=== PATIENT | male | born 1940 | race Caucasian/White ===

== ENCOUNTER 2017-04-09 07:02 | Day surgery (SDC) | payer MEDICARE, BC ==
[2017-04-09] VITALS (7 sets, daily range): BP systolic 94–123; BP diastolic 55–90; PULSE 68–106
[~2017-04-09 07:02] MED LIST: CENTRUM1 TAB PO; DIOVAN HCT 25 M1 TAB PO; DIOVAN160 MG PO; FERROUS SU325 MG/TAB PO; FOLIC ACID 40400 MCG PO; HYTRIN5 MG PO; LIPITOR 10MG10 MG PO; PRAVASTATIN40 MG PO; PREVACID 30MG30 M1 PO; TERAZOSIN HCL PO; VITAMIN C BUFF500 MG PO
[2017-04-09 07:49] LABS: MEAN CELL VOLUME 92 fl (80.0-100.0); MEAN CORPUSCULAR HGB CONC 33 g/dl (33.0-37.0); MEAN PLATELET VOLUME 10.6 fl (7.4-10.4); PLATELET COUNT 109 K/mm3 (130-400); RED BLOOD COUNT 3.91 M/mm3 (4.20-5.60); WHITE BLOOD COUNT 3.6 K/mm3 (4.8-10.8)
[2017-04-09 07:57] LABS: CALCIUM 8.7 mg/dL (8.4-10.2); CREATININE, serum 1.18 mg/dL (0.66-1.25); POTASSIUM 4.2 mmol/L (3.4-5.0)
[2017-04-09 07:59] LABS: HEMATOCRIT 35.9 % (42.0-52.0); HEMOGLOBIN 11.8 g/dl (13.5-18.0); INR 3.5 (0.8-3.0); MEAN CORPUSCULAR HEMOGLOBIN 30 pg (27.0-31.0); PROTHROMBIN TIME 40.8 SECONDS (9.7-12.8)
[2017-04-09] MEDS ORDERED: COZAAR100 MG PO (08:01)
[2017-04-09] MEDS ORDERED: TOPROL XL 25MG25 MG PO (08:01)
[2017-04-09] MEDS ORDERED: XARELTO20 MG PO (08:02)
[2017-04-09] MEDS ORDERED: FLOMAX 0.40.4 MG/CAP PO (08:03)
[2017-04-09] MEDS ORDERED: CORDARONE200 MG/TAB PO (09:45)
== END 2017-04-09 11:27 | disposition home or self-care (01) ==
LOC: COL.CAR 07:02
PROVIDERS: Internal Medicine Cardiovascular Disease
DX: I48.91 Unspecified atrial fibrillation (principal); I34.0 Nonrheumatic mitral (valve) insufficiency; E78.5 Hyperlipidemia, unspecified; I10 Essential (primary) hypertension; M17.0 Bilateral primary osteoarthritis of knee; D61.818 Other pancytopenia; R10.9 Unspecified abdominal pain; D64.9 Anemia, unspecified; N40.1 Benign prostatic hyperplasia with lower urinary tract symptoms; R33.9 Retention of urine, unspecified; Z79.01 Long term (current) use of anticoagulants; Z96.652 Presence of left artificial knee joint; Z96.651 Presence of right artificial knee joint; Z86.73 Personal history of transient ischemic attack (TIA), and cerebral infarction without residual deficits; Z82.49 Family history of ischemic heart disease and other diseases of the circulatory system; Z82.3 Family history of stroke
CPT/HCPCS: J7030

== ENCOUNTER 2018-11-12 16:53 | Emergency (ER) | payer MEDICARE, BC ==
[~2018-11-12] VITALS: Ht 177.8 cm; Wt 95.5 kg
[~2018-11-12 16:53] MED LIST changes: +CORDARONE200 MG/TAB PO; +COZAAR100 MG PO; +FLOMAX 0.40.4 MG/CAP PO; +HYTRIN 1MG C1 MG/CAP PO; -HYTRIN5 MG PO; +K-DUR 10 MEQ T10 MEQ PO; +LASIX 40MG TABL40 MG PO; +LIPITOR 40MG TA40 MG PO; +LOVENOX 100100 MG/ML SQ; +TOPROL XL 25MG25 MG PO; +XARELTO20 MG PO
[2018-11-12 17:01] VITALS: TEMP 98.7
[2018-11-12 17:34] LABS: BASO % 0.4 % (0.0-2.0); EOS % 0.3 % (0-4.0); GRAN # 5.8 (1.4-6.5); HEMATOCRIT 42.3 % (42.0-52.0); HEMOGLOBIN 13.6 g/dl (13.5-18.0); LYMPH # 1.2 (1.2-3.4); MEAN CELL VOLUME 91 fl (80.0-100.0); MEAN CORPUSCULAR HEMOGLOBIN 29 pg (27.0-31.0); MEAN CORPUSCULAR HGB CONC 32 g/dl (33.0-37.0); MEAN PLATELET VOLUME 9.5 fl (7.4-10.4); MONO # 0.6 (0.1-0.6); PLATELET COUNT 179 K/mm3 (130-400); RED BLOOD COUNT 4.63 M/mm3 (4.20-5.60); REDCELL DISTRIBUTION WIDTH-CV 15.8 % (11.5-14.5)
[2018-11-12] MEDS ORDERED: TYLENOL 325MG325 MG PO (17:37)
[2018-11-12] MEDS ORDERED: NORVASC 5MG5 MG/TAB PO (17:37)
[2018-11-12] MEDS ORDERED: ELIQUIS 5MG PO (17:38)
[2018-11-12] MEDS ORDERED: FERROUS SU325 MG/TAB PO (17:39)
[2018-11-12] MEDS ORDERED: IMODIUM 2MG CAPS2 MG PO (17:39)
[2018-11-12] MEDS ORDERED: SYNTHROID0.1 MG/TAB PO (17:40)
[2018-11-12] MEDS ORDERED: LEXAPRO 10MG10 MG PO (17:40)
[2018-11-12] MEDS ORDERED: MELAT3MGTAB PO (17:41)
[2018-11-12] MEDS ORDERED: RISPERDAL 1M1 MG/TAB PO (17:42)
[2018-11-12] MEDS ORDERED: TAGAMET HB200 MG PO (17:42)
[2018-11-12 17:46] LABS: ALBUMIN 3.8 gm/dL (3.5-5.0); BILIRUBIN,TOTAL 0.7 mg/dL (0.0-1.0); CALCIUM 9.1 mg/dL (8.4-10.2); CREATININE, serum 1.97 (0.66-1.25); TOTAL PROTEIN 6.8 gm/dL (6.4-8.2)
[2018-11-12 17:57] LABS: TROPONIN-I 0.02 ng/mL (0.000-0.035)
[2018-11-12 19:20] LABS: COLLECTION METHOD CLEAN CATCH
[2018-11-12 20:00] LABS: AMORPHOUS CRYSTAL Present /uL; MUCOUS Present /lpf; PH 8 (5-8); SQUAMOUS EPITHELIAL 0-2 /hpf; URINE APPEARANCE Cloudy; URINE BACTERIA None Seen /hpf; URINE BILIRUBIN Negative (NEGATIVE); URINE BLOOD 1+ (NEGATIVE); URINE COLOR Amber; URINE GLUCOSE Negative (NEGATIVE); URINE KETONE Negative (NEGATIVE); URINE LEUKOCYTE ESTERASE 3+ (NEGATIVE); URINE NITRATE Negative (NEGATIVE); URINE PROTEIN(semi-quant) 1+ (NEGATIVE); URINE UROBILINOGEN Negative (NEGATIVE)
[2018-11-12] MEDS ORDERED: OMNICEF 300MG300 MG PO (20:08)
[2018-11-12 20:45] VITALS: BP 149/72; PULSE 59
== END 2018-11-12 20:45 | disposition home or self-care (01) ==
LOC: COL.ER 16:53
PROVIDERS: Emergency Medicine
DX: R53.81 Other malaise (principal)
CPT/HCPCS: J7030

== ENCOUNTER 2018-11-17 07:05 | Emergency (ER) | payer MEDICARE, BC ==
[~2018-11-17] VITALS: Ht 177.8 cm; Wt 95.5 kg
[~2018-11-17 07:05] MED LIST changes: +ELIQUIS 5MG PO; +IMODIUM 2MG CAPS2 MG PO; +LEXAPRO 10MG10 MG PO; +MELAT3MGTAB PO; +NORVASC 5MG5 MG/TAB PO; +OMNICEF 300MG300 MG PO; +RISPERDAL 1M1 MG/TAB PO; +SYNTHROID0.1 MG/TAB PO; +TAGAMET HB200 MG PO; +TYLENOL 325MG325 MG PO
[2018-11-17 07:12] VITALS: TEMP 97.6
[2018-11-17 07:55] LABS: BASO % 0.3 % (0.0-2.0); EOS # 0.1 (0.0-0.7); EOS % 0.8 % (0-4.0); GRAN # 4.6 (1.4-6.5); GRAN % 71.1 % (42.2-75.2); HEMATOCRIT 39.1 % (42.0-52.0); HEMOGLOBIN 12.8 g/dl (13.5-18.0); LYMPH # 1.2 (1.2-3.4); LYMPH % 18.5 % (20.0-51.0); MEAN CELL VOLUME 90 fl (80.0-100.0); MEAN CORPUSCULAR HEMOGLOBIN 30 pg (27.0-31.0); MEAN CORPUSCULAR HGB CONC 33 g/dl (33.0-37.0); MEAN PLATELET VOLUME 9.9 fl (7.4-10.4); MONO # 0.6 (0.1-0.6); MONO % 8.8 % (1.7-9.3); PLATELET COUNT 163 K/mm3 (130-400); RED BLOOD COUNT 4.33 M/mm3 (4.20-5.60); REDCELL DISTRIBUTION WIDTH-CV 15.4 % (11.5-14.5)
[2018-11-17 08:00] LABS: INR 1.6 (0.8-3.0); PROTHROMBIN TIME 19.2 SECONDS (9.7-12.8)
[2018-11-17 08:02] LABS: PARTIAL THROMBOPLASTIN TIME 39.3 SECONDS (26.0-37.0)
[2018-11-17 08:06] LABS: CALCIUM 8.8 mg/dL (8.4-10.2); CREATININE, serum 1.42 (0.66-1.25); POTASSIUM 3.5 mmol/L (3.4-5.0)
[2018-11-17 08:47] VITALS: BP 104/51; PULSE 64
== END 2018-11-17 09:00 | disposition home or self-care (01) ==
LOC: COL.ER 07:05
PROVIDERS: Emergency Medicine
DX: R58 Hemorrhage, not elsewhere classified (principal); Z79.01 Long term (current) use of anticoagulants

== ENCOUNTER 2022-10-16 14:27 | Inpatient (IN) | payer MEDICARE, BC, MEDICAID ==
[~2022-10-16] VITALS: Ht 177.8 cm; Wt 95.0 kg
[2022-10-16 13:00] VITALS: BP_SYST 128
--- NOTE | 2022-10-16 14:42 | NUR ---
NOTIFIED KINGA CONKLIN OF PT'S ARRIVAL TO ROOM 325.
[2022-10-16 15:00] VITALS: BP 128/70; PULSE 86; TEMP 97.5
[2022-10-16] MEDS ORDERED: HYDROCORTISONE30 G3 TP (15:34)
[2022-10-16] MEDS ORDERED: CELEXA10 MG PO (15:34)
[2022-10-16] MEDS ORDERED: DEPAKOTE 125MG125 M1 PO (15:36)
[2022-10-16] MEDS ORDERED: LASIX 80MG TABL80 MG PO (15:50)
[2022-10-16 15:53] LABS: HEMATOCRIT 41.8 % (42.0-52.0); HEMOGLOBIN 13.8 g/dl (13.5-18.0); MEAN CELL VOLUME 103 fl (80.0-100.0); MEAN CORPUSCULAR HEMOGLOBIN 34 pg (27-31); MEAN CORPUSCULAR HGB CONC 33 g/dl (33.0-37.0); MEAN PLATELET VOLUME 10.5 fl (7.4-10.4); PLATELET COUNT 112 K/mm3 (130-400); RED BLOOD COUNT 4.05 M/mm3 (4.20-5.60); REDCELL DISTRIBUTION WIDTH-CV 17.8 % (11.5-14.5)
[2022-10-16] MEDS ORDERED: MILK OF MA1200 MG/5 PO (15:56)
[2022-10-16] MEDS ORDERED: MULTI VITAMINS1 TAB PO (15:57)
[2022-10-16 15:58] LABS: BILIRUBIN,TOTAL 0.9 mg/dL (0.2-1.2); CALCIUM 8.8 mg/dL (8.4-10.2); CREATININE, serum 4.72 mg/dL (0.72-1.25); POTASSIUM 4.4 mmol/L (3.5-4.5); TOTAL PROTEIN 6.1 gm/dL (6.2-8.1)
[2022-10-16] MEDS ORDERED: ALDACTONE 25MG25 M1 PO (15:58)
[2022-10-16] MEDS ORDERED: PHARMASSURE ZIN50 MG PO (15:59)
[2022-10-16 16:29] LABS: ANISOCYTOSIS 1+; BAND 3 % (0-10); EOSINOPHIL 1 % (0-4); NEUTROPHILS 55 % (42.0-75.2); PLATELET ESTIMATE DECREASED (NORMAL)
[2022-10-16 16:30] LABS: LYMPHOCYTE 30 % (20.0-51.0)
--- NOTE | 2022-10-16 16:31 | NUR ---
COCHRAN CATHETER PLACED AFTER TWO ATTEMPTS. IV PLACED TO RFA. MED REC COMPLETE.
--- NOTE | 2022-10-16 17:02 | NUR ---
PT HAD LARGE LOOSE INCONTINENT STOOL. COMPLETE BED CHANGE AND BED BATH COMPLETED BY ANDRÉS LESLIE.
[2022-10-16 17:05] VITALS: BP_SYST 128
[2022-10-16 18:15] LABS: COLLECTION METHOD CLEAN CATCH
[2022-10-16 18:21] LABS: SQUAMOUS EPITHELIAL None Seen /hpf (0-10); URINE BACTERIA Moderate /hpf (NONE SEEN); URINE RBC >50 /hpf (0-2); URINE WBC >50 /hpf (0-2)
[2022-10-16 18:23] LABS: PH 8.5 (5.0-8.5); URINE APPEARANCE Cloudy (CLEAR/HAZY); URINE BLOOD 3+ (NEGATIVE); URINE COLOR OTHER (YELLOW); URINE GLUCOSE Negative (NEGATIVE); URINE KETONE Negative (NEGATIVE); URINE NITRATE Positive (NEGATIVE); URINE PROTEIN(semi-quant) 1+ (NEGATIVE)
[2022-10-16 19:13] VITALS: BP 130/66; PULSE 67; TEMP 98.2
[2022-10-16 21:00] VITALS: BP_SYST 130
--- NOTE | 2022-10-16 21:57 | NUR ---
SHIFT REPORT FROM NAHOMY TAYLOR. PATIENT IN BED ON ROOM ENTRY. HS MEDS PER EMAR. COCHRAN BAG WAS LEAKING SO NEW ONE APPLIED. STARTED ON 24 HR URINE AT 2100. L ARM RESTRICTED. IV TO R FA PATENT. PATIENT IS NONCOMPLIENT WITH FR AND ASKS FOR MORE TO DRINK FREQUENTLY. 2+ BLE EDEMA NOTED. DENIES ADDITIONAL NEEDS. CALL LIGHT IN REACH.
[2022-10-17] VITALS (14 sets, daily range): BP systolic 113–137; BP diastolic 51–104; PULSE 59–74; TEMP 97.2–98.3
--- NOTE | 2022-10-17 06:40 | NUR ---
awake resting in bed, dozes off and on, bedside shift report received from BRANDON Blanchard
--- NOTE | 2022-10-17 07:35 | NUR ---
awake resting in bed, full assessment completed, see interventions for further info, hd some dried blood around meatus which was cleaned and dried, velásquez cath patent draining pink tinged urine and is on ice for 24 hour urine, breakfast ordered, denies needs at this time
[2022-10-17 07:38] LABS: HEMATOCRIT 42.8 % (42.0-52.0); HEMOGLOBIN 13.8 g/dl (13.5-18.0); MEAN CELL VOLUME 107 fl (80.0-100.0); MEAN CORPUSCULAR HEMOGLOBIN 34 pg (27-31); MEAN CORPUSCULAR HGB CONC 32 g/dl (33.0-37.0); PLATELET COUNT 100 K/mm3 (130-400); RED BLOOD COUNT 4.02 M/mm3 (4.20-5.60); REDCELL DISTRIBUTION WIDTH-CV 17.8 % (11.5-14.5)
[2022-10-17 07:50] LABS: ALBUMIN 2.8 gm/dL (3.4-4.8); CALCIUM 8.6 mg/dL (8.4-10.2); CREATININE, serum 3.93 mg/dL (0.72-1.25); PHOSPHOROUS 4.1 mg/dL (2.3-4.7); POTASSIUM 3.8 mmol/L (3.5-4.5)
[2022-10-17 08:05] LABS: ANISOCYTOSIS 1+; BAND 3 % (0-10); EOSINOPHIL 1 % (0-4); LYMPHOCYTE 27 % (20.0-51.0); NEUTROPHILS 60 % (42.0-75.2); PLATELET ESTIMATE NORMAL (NORMAL)
--- NOTE | 2022-10-17 08:43 | NUR ---
vascular lab in completing echo
--- NOTE | 2022-10-17 10:03 | NUR ---
resting in bed with TV on
--- NOTE | 2022-10-17 10:58 | NUR ---
physical therapy in and with assist of [employer] COORDINATOR they helped patient out of bed and into recliner, statehe had difficulty standing but was able to take a few steps then, patient states he had a hip fusion in 1960 and cannot straighten his leg
--- NOTE | 2022-10-17 14:39 | NUR ---
[employer] met with Patient at bedside to conduct Care Managment Assessment and discuss discharge planning. Patient lives at [facility] for intermission coordinator care. Patient reports no family contacts. Patient is establisched with PCP Dr. Mclean and denies the use of O2, endorses the use of a wheelchair and 4WW for ambulation prior to admission. Patient reports that Advanced Directives may be completed with [facility]. Discharge Plan: Return to [facility] pending further treatment team assessment.
--- NOTE | 2022-10-17 15:33 | NUR ---
Report recieved from BRANDON Stratton. Patient had large bm, melanie care completed, patient repositioned. Lindquist catheter in place. Urine is red tinged, per report it has been like this all shift. Patient currently resting in bed. Denies any pain, discomfort, SOA, or further needs at this time. Call light in reach. Fall percautions in place.
--- NOTE | 2022-10-17 18:30 | NUR ---
Patient has had an uneventful afternoon. Currently resting in bed, denies any pain, discomfort, or further needs at this time. Call light in reach. Fall percautions in place.
--- NOTE | 2022-10-17 20:00 | NUR ---
Pt doing okay. He does ask for something to drink any time someone goes in to his room. I did give him some water with his medications. Pt did have some complaints of pain when I raised the head of bed for him to take his medication. He stated that his back hurt, PRN tyelnol given. No other needs, will continue to monitor
[2022-10-18] VITALS (11 sets, daily range): BP systolic 107–137; BP diastolic 59–80; PULSE 59–66; TEMP 97.9–98.5
--- NOTE | 2022-10-18 06:30 | NUR ---
Pt has slept off and on through the night. Asks for something to drink often. Linens changed at this time and bed bath given. IV to right ac came out at some point.
[2022-10-18 07:05] LABS: HEMATOCRIT 39.9 % (42.0-52.0); HEMOGLOBIN 12.7 g/dl (13.5-18.0); MEAN CELL VOLUME 106 fl (80.0-100.0); MEAN CORPUSCULAR HEMOGLOBIN 34 pg (27-31); MEAN CORPUSCULAR HGB CONC 32 g/dl (33.0-37.0); MEAN PLATELET VOLUME 10.9 fl (7.4-10.4); PLATELET COUNT 108 K/mm3 (130-400); RED BLOOD COUNT 3.78 M/mm3 (4.20-5.60); REDCELL DISTRIBUTION WIDTH-CV 17.6 % (11.5-14.5)
[2022-10-18 07:22] LABS: ALBUMIN 2.5 gm/dL (3.4-4.8); CALCIUM 8.6 mg/dL (8.4-10.2); CREATININE, serum 3.35 mg/dL (0.72-1.25); PHOSPHOROUS 3.9 mg/dL (2.3-4.7); POTASSIUM 3.8 mmol/L (3.5-4.5)
[2022-10-18 08:36] LABS: BAND 11 % (0-10); LYMPHOCYTE 24 % (20.0-51.0); NEUTROPHILS 58 % (42.0-75.2); PLATELET ESTIMATE DECREASED (NORMAL)
[2022-10-18 08:37] LABS: ANISOCYTOSIS 1+
--- NOTE | 2022-10-18 18:02 | NUR ---
PATIENT ALERT TO SELF, BUT CONFUSED. PER NURSE AT [facility], THIS IS PATIENT'S BASELINE. COCHRAN TO DD WITH BLOOD-TINGED OUTPUT. COCHRAN IRRIGATED AND ORDERED TO WATCH AND REPORT COLOR TO NEPHRO TOMORROW. IV TO RIGHT FA INT, FLUSHES WELL. PATIENT ON . ASSESSMENT PERFORMED. AM MEDS ADMINISTERED. PATIENT IN BED WITH CALL LIGHT NEAR.
--- NOTE | 2022-10-18 23:13 | NUR ---
Shift assessment performed. Pt is alert but confused. He has a tremor of his right arm. He is on room air. He has a velásquez catheter in place with red-tinged urine and small clots present. Pericare provided. There is redness throughout both buttocks that is blanchable. He was repositioned on to his side until comfortable. Fall precautions in place and call light within reach.
[2022-10-19] VITALS (12 sets, daily range): BP systolic 107–144; BP diastolic 56–83; PULSE 59–85; TEMP 97.9–98.5
[2022-10-19 07:30] LABS: HEMOGLOBIN 11.9 g/dl (13.5-18.0); MEAN CELL VOLUME 104 fl (80.0-100.0); MEAN CORPUSCULAR HEMOGLOBIN 34 pg (27-31); MEAN CORPUSCULAR HGB CONC 33 g/dl (33.0-37.0); MEAN PLATELET VOLUME 10.7 fl (7.4-10.4); PLATELET COUNT 96 K/mm3 (130-400); RED BLOOD COUNT 3.53 M/mm3 (4.20-5.60); REDCELL DISTRIBUTION WIDTH-CV 17.2 % (11.5-14.5)
[2022-10-19 07:35] LABS: HEMATOCRIT 36.6 % (42.0-52.0)
[2022-10-19 07:58] LABS: ALBUMIN 2.3 gm/dL (3.4-4.8); CALCIUM 8.3 mg/dL (8.4-10.2); CREATININE, serum 2.72 mg/dL (0.72-1.25); PHOSPHOROUS 3.6 mg/dL (2.3-4.7); POTASSIUM 3.8 mmol/L (3.5-4.5)
[2022-10-19 08:55] LABS: ANISOCYTOSIS 1+; BAND 4 % (0-10); LYMPHOCYTE 23 % (20.0-51.0); MYELOCYTE 1 % (0-0); NEUTROPHILS 62 % (42.0-75.2)
[2022-10-19 08:56] LABS: PLATELET ESTIMATE DECREASED (NORMAL)
--- NOTE | 2022-10-19 08:57 | NUR ---
PATIENT ALERT TO SELF BUT CONFUSED. IV TO RIGHT FOREARM INT, FLUSHES WELL. COCHRAN TO DD WITH TEA-COLORED OUTPUT. PATIENT ON ROOM AIR. PATIENT EATING BREAKFAST THIS AM, PATIENT ON FLUID RESTRICTION. CALL LIGHT IN REACH.
[2022-10-20] VITALS (7 sets, daily range): BP systolic 105–144; BP diastolic 53–73; PULSE 60–69; TEMP 98–98.3
--- NOTE | 2022-10-20 05:00 | NUR ---
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 PT HAD A PRETTY UNEVENTFUL NIGHT. PT DENIES GENERAL PAIN, CHEST PAIN, PALPITATIONS, SOB, N,V OR DIZZINESS. PT DID STATE HE HAS SOME LOOSE STOOLS TODAY. FALL PRECAUTIONS IN PLACE. BED ALARM ON. CALL LIGHT WITHIN REACH.
[2022-10-20 06:44] LABS: ALBUMIN 2.4 gm/dL (3.4-4.8); CALCIUM 8.4 mg/dL (8.4-10.2); CREATININE, serum 2.4 mg/dL (0.72-1.25); PHOSPHOROUS 3.4 mg/dL (2.3-4.7); POTASSIUM 4.2 mmol/L (3.5-4.5)
[2022-10-20 06:45] LABS: HEMATOCRIT 37.5 % (42.0-52.0); HEMOGLOBIN 11.9 g/dl (13.5-18.0); MEAN CELL VOLUME 105 fl (80.0-100.0); MEAN CORPUSCULAR HEMOGLOBIN 33 pg (27-31); MEAN CORPUSCULAR HGB CONC 32 g/dl (33.0-37.0); MEAN PLATELET VOLUME 10.7 fl (7.4-10.4); PLATELET COUNT 103 K/mm3 (130-400); RED BLOOD COUNT 3.56 M/mm3 (4.20-5.60); REDCELL DISTRIBUTION WIDTH-CV 16.8 % (11.5-14.5)
[2022-10-20 07:25] LABS: KAPPA FREE LIGHT CHAIN-SERUM 59.49 mg/L (()); KAPPA LAMBDA RATIO 1.92 ratio (()); LAMDA FREE LIGHT CHAIN SERUM 31.03 mg/L (())
[2022-10-20 07:40] LABS: ANISOCYTOSIS 1+; BAND 2 % (0-10); EOSINOPHIL 2 % (0-4); LYMPHOCYTE 33 % (20.0-51.0); METAMYELOCYTE 1 % (0-0); NEUTROPHILS 50 % (42.0-75.2); PLATELET ESTIMATE NORMAL (NORMAL)
--- NOTE | 2022-10-20 09:37 | NUR ---
pt resting in bed, just finished breakfast. meds given and assessment complete. pt requesting to drink a lot of orange juice this morning, instructed pt on fluid restriction. velásquez to dd w dark yellow urine output. left arm restricted. tremors are present. +2 ble is present. INT to right forearm. no needs this morning. call light in reach.
--- NOTE | 2022-10-20 10:04 | NUR ---
ST in with pt assessing swallowing
--- NOTE | 2022-10-20 11:39 | NUR ---
FLOYD staffed with KATERIN Boothe. The patient is ready for discharge. SW notified Cot[facility] at [facility]. Coty confirms they can accept the patient back and they ask for skilled orders. Coty clarifies that the patient's DPOA-HC is a friend, Franklin Mcgill (ph#[phone]). The patient's DPOA-HC is in the patient's chart. Transportation was scheduled around 1300. SW contacted the patient's friend/DPOA-HC, Franklin, to update on the above. Franklin is in agreement to the plan. FLOYD read Franklin the IM form over the phone. Franklin verbalized understanding and gave SW approval to sign the form on his behalf. The patient is to discharge today, 10/20, back to [facility] for a skilled stay. Transportation was scheduled around 1300, via [place]. FLOYD notified the patient RN and Franklin of the transport time. No additional needs at this time.
--- NOTE | 2022-10-20 11:53 | NUR ---
velásquez discontinued per dr orders, removed without difficulty. pt sitting up eating lunch.
--- NOTE | 2022-10-20 14:06 | NUR ---
pt had voided post catheter in his brief. pt is ready for discharge to [facility].
--- NOTE | 2022-10-20 14:29 | NUR ---
Coty rodgers social work at [place] called to check on pt, updates given. they will send transportation for pt now.
--- NOTE | 2022-10-20 15:33 | NUR ---
x3 assist to help pt transfer to wheelchair. discharge paper work given to pt and bead worker sewing.
--- NOTE | 2022-10-20 15:43 | NUR ---
report called to Lovely at [facility]. all questions answered.
[2022-10-21] MEDS ORDERED: SINEMET 25/101 UDTAB PO (15:49)
[2022-10-22 13:31] LABS: A/G RATIO (PEP) 0.87 (())
[2022-10-23 16:13] LABS: URINE HOURS (UPEP) 24 h (())
[2022-10-23 17:00] LABS: URINE PROTEIN 24HR (UPEP) 1215 mg/24 h (<229)
== END 2022-10-20 15:43 | DRG 683 ==
LOC: SURG 14:27
PROVIDERS: ADMIT Internal Medicine Nephrology
DX: N17.9 Acute kidney failure, unspecified (principal); E87.0 Hyperosmolality and hypernatremia; N39.0 Urinary tract infection, site not specified; E87.6 Hypokalemia; D69.6 Thrombocytopenia, unspecified; N40.0 Benign prostatic hyperplasia without lower urinary tract symptoms; K21.9 Gastro-esophageal reflux disease without esophagitis; E79.0 Hyperuricemia without signs of inflammatory arthritis and tophaceous disease; G20 Parkinson's disease; F02.80 Dementia in other diseases classified elsewhere, unspecified severity, without behavioral disturbance, psychotic disturbance, mood disturbance, and anxiety; N18.4 Chronic kidney disease, stage 4 (severe); I50.9 Heart failure, unspecified; E03.9 Hypothyroidism, unspecified; D50.9 Iron deficiency anemia, unspecified; F32.A Depression, unspecified; E78.5 Hyperlipidemia, unspecified; M19.90 Unspecified osteoarthritis, unspecified site; I48.0 Paroxysmal atrial fibrillation; G47.00 Insomnia, unspecified; L21.9 Seborrheic dermatitis, unspecified; Z96.653 Presence of artificial knee joint, bilateral; Z95.0 Presence of cardiac pacemaker; Z86.73 Personal history of transient ischemic attack (TIA), and cerebral infarction without residual deficits; Z85.820 Personal history of malignant melanoma of skin; Z79.899 Other long term (current) drug therapy; Z86.718 Personal history of other venous thrombosis and embolism; Z79.01 Long term (current) use of anticoagulants; Z79.890 Hormone replacement therapy
CPT/HCPCS: A4314; J0696